=== PATIENT | female | born 1970 | race Caucasian/White ===

== ENCOUNTER 2018-12-29 14:54 | Emergency (ER) | payer SELFPAY ==
[2018-12-29 15:35] VITALS: RESP 16
--- NOTE | 2018-12-29 16:23 | ED PDOC ---
HPI: General Adult Time Seen by Provider: 12/29/18 15:45 Chief Complaint (Nursing): ENT Problem Chief Complaint (Provider): Sore Throat History Per: Patient History/Exam Limitations: no limitations Onset/Duration Of Symptoms: Days (x4) Current Symptoms Are (Timing): Still Present Additional Complaint(s): 48 year old female presents to the ED for evaluation of throat pain for the past four days associated with body aches and subjective fever. She notes that while she is able to swallow her saliva and liquids with pain, she has not been able to swallow solid foods. Otherwise, denies cough, congestion, recent travel, and sick contacts. Last dose of Tylenol was taken this morning around 0900 with minimal relief. Past Medical History Reviewed: Historical Data, Nursing Documentation, Vital Signs Vital Signs: Last Vital Signs Temp 98.4 F 12/29/18 15:34 Pulse 94 H 12/29/18 15:34 Resp 16 12/29/18 15:34 BP 162/88 H 12/29/18 15:34 Pulse Ox 97 12/29/18 15:34 Primary Care Provider: FAMILY PROVIDER,NO - Medical History PMH: No Chronic Diseases - Surgical History Surgical History: (x2) - Family History Family History: States: Unknown Family Hx - Social History Current smoker - smoking cessation education provided: No - Home Medications Home Medications: Ambulatory Orders Medication Instructions Recorded Amoxicillin 500 mg PO BID 10 Days #20 tablet 12/29/18 Ibuprofen [Motrin Tab] 600 mg PO Q6 PRN #20 tab 12/29/18 Lidocaine 2% Viscous 15 ml MM Q6 PRN #1 bottle 12/29/18 - Allergies Allergies/Adverse Reactions: Allergies Allergy/AdvReac Type Severity Reaction Status Date / Time No Known Allergies Allergy Verified 12/29/18 15:36 Review of Systems ROS Statement: Except As Marked, All Systems Reviewed And Found Negative Constitutional: Positive for: Fever, Other (body aches) ENT: Positive for: Throat Pain, Other (pain with swallowing). Negative for: No se Congestion Respiratory: Negative for: Cough Physical Exam - Reviewed Nursing Documentation Reviewed: Yes Vital Signs Reviewed: Yes - Physical Exam Comments: GENERAL APPEARANCE: Patient is awake, alert, oriented x 3, in mild obvious discomfort. Patient with muffled voice secondary to throat pain. SKIN: Warm, dry; (-) cyanosis. EYES: normal inspection ENMT: (-) trismus. Mucous membranes moist. (-) drooling. Airway patent: (-) stridor. Pharynx: (+) mild swelling and erythema to bilateral tonsils, (-) purulent pockets, (-) air obstruction, (-) uvula deviation NECK: full ROM, (-) tenderness, (-) stiffness, (+) submandibular and anterior cervical lymphadenopathy bilaterally CHEST AND RESPIRATORY: (-) rhonchi, (-) rales, (-) wheezes; breath sounds even and non-labored bilaterally. HEART AND CARDIOVASCULAR: RRR, (-) irregularity NEURO AND PSYCH: Mental status as above. - ECG O2 Sat by Pulse Oximetry: 97 (RA) Pulse Ox Interpretation: Normal Medical Decision Making Medical Decision Making: Time: 1558 Initial Impression: r/o strep Initial Plan: --Rapid strep swab --Lidocaine 2% viscous 15ml PO --Decadron 10mg IM --Toradol 30mg IM --Reevaluate 1654 Strep negative. 17:25 on re eval pt reports feeling better, swallowing with less pain, viscous lidocaine helped, pt's airways are clear, no respiratory distress, VSS will start pt on antibiotics due to lymphadenopathy Discussed results, diagnosis, treatment, strict return precautions and f/u with pt who is understanding, in agreement and stable for dc --- Scribe Attestation: Documented by Olga Granados, acting as a scribe for Alejandro Escamilla PA-C. Provider Scribe Attestation: All medical record entries made by the Scribe were at my direction and personally dictated by me. I have reviewed the chart and agree that the record accurately reflects my personal performance of the history, physical exam, medical decision making, and the department course for this patient. I have also personally directed, reviewed, and agree with the discharge instructions and disposition. Disposition - Clinical Impression Clinical Impression: Pharyngitis - Patient ED Disposition Is Patient to be Admitted: No Counseled Patient/Family Regarding: Studies Performed, Diagnosis, Need For Followup, Rx Given - Disposition Referrals: your, primary doctor [Other] [facility] [place] [Outside] Disposition: Routine/Home Disposition Time: 17:29 Condition: IMPROVED Additional Instructions: Thank you for letting us take care of you today. The emergency medical care you received today was directed at your acute symptoms. If you were prescribed any medication, please fill it and take as directed. It may take several days for your symptoms to resolve. Rest, drink plenty of fluids to stay hydrated - hot and cold to soothe throat (hot tea with honey). Return to the Emergency Department if your symptoms worsen, do not improve, or if you have any other problems. Please contact your doctor in 2 days for re-evaluation and follow up / or call one of the physicians/clinics you have been referred to that are listed on the Patient Visit Information form that is included in your discharge packet. Bring any paperwork you were given at discharge with you along with any medications you are taking to your follow up visit. Our treatment cannot replace ongoing medical care by a primary care provider (PCP) outside of the emergency department. Prescriptions: Amoxicillin 500 mg PO BID 10 Days #20 tablet Ibuprofen [Motrin Tab] 600 mg PO Q6 PRN #20 tab PRN Reason: pain and fever >100.4 Lidocaine 2% Viscous 15 ml MM Q6 PRN #1 bottle PRN Reason: thorat pain Instructions: Sore Throat in Adults Forms: [employer] ([place]rian), [facility] ED School/Work Excuse Print Language: KHMER - POA Present On Arrival: None
[2018-12-29 17:46] VITALS: BP 135/84; PULSE 87; TEMP 98
[2018-12-29 21:31] VITALS: O2SAT 97
== END 2018-12-29 17:32 | disposition home or self-care (01) ==
LOC: H.ER 14:54
DX: J02.9 Acute pharyngitis, unspecified (principal)
CPT/HCPCS: 81025; 87070; 87430; 96372; 99283; J1100; J1885